=== PATIENT | male | born 1985 | race Hispanic/Latino ===

== ENCOUNTER 2019-12-27 08:40 | Emergency (ER) | payer OTHER ==
[2019-12-27] MEDS ORDERED: Ibuprofen 800 MG TAB ONE (09:20)
[2019-12-27] MEDS ORDERED: Acetaminophen 500 MG TAB ONE (09:20)
[2019-12-27 09:46] LABS: Hemoglobin 15.6 g/dL (14.0-18.0); Mean Corpuscular HGB CONC 34.2 g/dL (32.0-36.0); Mean Corpuscular Hemoglobin 30.9 pg (27.0-31.0); Mean Corpuscular Volume 90.2 fL (78.0-98.0); Mean Platelet Volume 7.3 fL (7.4-10.4); Platelet Count 329 thou/uL (130-400); RBC Distribution Width 12.3 % (11.5-14.5); Red Blood Cell (RBC) Count 5.06 mill/uL (4.70-6.10); White Blood Cell (WBC) Count 13.9 thou/uL (4.8-10.8)
--- NOTE | 2019-12-27 09:56 | RAD ---
RADIOGRAPH CHEST 1 VIEW: DATE: 12/27/2019 TIME: 9:11 AM HISTORY: 34-year-old male with cough and fever COMPARISON: 9 double FINDINGS: There are multifocal patchy infiltrates heterogeneously distributed in the bilateral mid, lower, and right upper, lung [place]cala, with relative sparing of the apices. Lateral costophrenic angles are sharp. No pneumothorax. IMPRESSION: Multifocal bilateral infiltrates. Recommend correlation with COVID-19 status
[2019-12-27 10:02] LABS: ALT (SGPT) 78 U/L (8-55); AST (SGOT) 64 U/L (5-34); Alkaline Phosphatase 79 U/L (40-110); Anion Gap 13 mmol/L (10-20); BUN (Urea Nitrogen) 11 mg/dL (8.9-20.6); Bilirubin, Total 0.9 mg/dL (0.2-1.2); Calc. Creatinine Clearance 0 mL/min (70-130); Calcium 8.6 mg/dL (7.8-10.44); Carbon Dioxide 26 mmol/L (22-29); Chloride 102 mmol/L (98-107); Estimated GFR-MDRD 77; Globulin 3.5 g/dL (2.4-3.5); Glucose 116 mg/dL (70-105); Potassium 3.3 mmol/L (3.5-5.1); Protein, Total 7.5 g/dL (6.0-8.3); Sodium 138 mmol/L (136-145)
[2019-12-27 10:11] LABS: Band 4 % (5-11); Lymphocytes 11 % (21-51); MDiff Complete? YES; Monocytes 2 % (0-10); Neutrophil 83 % (42-75)
[2019-12-27] MEDS ORDERED: Vancomycin 1 GM/200 ML BAG ONE (10:26)
[2019-12-27] MEDS ORDERED: cefTRIAXone\\ROCEPHIN 2 GM VIAL ONE (10:26)
[2019-12-28 14:01] LABS: SARS-CoV-2 MS2 Positive; SARS-CoV-2 N Gene Positive; SARS-CoV-2 S Gene Positive; SARS-CoV-2 orf1ab Positive
== END 2019-12-27 12:32 | disposition home or self-care (01) ==
LOC: ERS 08:40
DX: U07.1 COVID-19 (principal)
CPT/HCPCS: 71045; 80053; 83605; 85025; 87040; 87635; 93005; 96365; 96367; J0696; J3370; U0003